=== PATIENT | female | born 1955 | race Caucasian/White ===

== ENCOUNTER 2016-06-22 15:25 | Emergency (ER) | payer OTHER | END 2016-06-22 17:00 | disposition home or self-care (01) | LOC: FER 15:25 | DX: S21.031A Puncture wound without foreign body of right breast, initial encounter (principal); Z85.3 Personal history of malignant neoplasm of breast; Z90.13 Acquired absence of bilateral breasts and nipples | CPT/HCPCS: 87070; 99283 ==

== ENCOUNTER → 2016-09-05 | Day surgery (SDC) | payer OTHER | END | disposition home or self-care (01) | LOC: FAS 09:11 | DX: K64.4 Residual hemorrhoidal skin tags (principal); I10 Essential (primary) hypertension; E03.9 Hypothyroidism, unspecified; Z85.3 Personal history of malignant neoplasm of breast; Z90.49 Acquired absence of other specified parts of digestive tract; Z90.13 Acquired absence of bilateral breasts and nipples; Z90.89 Acquired absence of other organs; Z81.1 Family history of alcohol abuse and dependence; Z82.3 Family history of stroke; Z83.3 Family history of diabetes mellitus; Z79.899 Other long term (current) drug therapy; Z98.51 Tubal ligation status; Z98.890 Other specified postprocedural states | CPT/HCPCS: 88304; J1100; J2405; J2704; J3010 ==